=== PATIENT | female | born 1960 | race Caucasian/White ===

== ENCOUNTER → 2017-10-21 | Outpatient (CLI) | payer OTHER | END | disposition home or self-care (01) | LOC: LAB 14:48 | PROVIDERS: ATTEND Family Medicine | DX: E03.9 Hypothyroidism, unspecified (principal) | CPT/HCPCS: 84443 ==

== ENCOUNTER → 2017-11-08 | Outpatient (CLI) | payer OTHER ==
[2017-11-08 08:43] LABS: BASO # 0.1 x10^3/uL (0.0-0.2); BASO % 2 % (0-3); EOS # 0.2 x10^3/uL (0.0-0.7); EOS % 3 % (0-3); LYMPH # 1.6 x10^3/uL (1.0-4.8); LYMPH % 33 % (24-48); MEAN CORPUSCULAR HEMOGLOBIN 30 pg (25-35); MEAN CORPUSCULAR HGB CONC 34 g/dL (31-37); MEAN CORPUSCULAR VOLUME 89 fL (79-100); MONO # 0.5 x10^3/uL (0.0-1.1); MONO % 10 % (0-9); NEUT # 2.4 x10^3uL (1.8-7.7); NEUT % 52 % (31-73); PLATELET COUNT 338 x10^3/uL (140-400); RED BLOOD COUNT 4.62 x10^6/uL (3.50-5.40); RED CELL DISTRIBUTION WIDTH 13.1 % (11.5-14.5); WHITE BLOOD COUNT 4.7 x10^3/uL (4.0-11.0)
[2017-11-08 08:59] LABS: ALBUMIN 3.7 g/dL (3.4-5.0); ALBUMIN/GLOBULIN RATIO 1.2 (1.0-1.7); CALCIUM 8.9 mg/dL (8.5-10.1); CREATININE 0.9 mg/dL (0.6-1.0); GFR 64.5; TOTAL BILIRUBIN 0.4 mg/dL (0.2-1.0); TOTAL PROTEIN 6.9 g/dL (6.4-8.2)
== END | disposition home or self-care (01) ==
LOC: LAB 07:31
PROVIDERS: ATTEND Family Medicine
DX: Z13.220 Encounter for screening for lipoid disorders (principal); F32.5 Major depressive disorder, single episode, in full remission; F32.89 Other specified depressive episodes; R79.89 Other specified abnormal findings of blood chemistry
CPT/HCPCS: 36415; 80053; 80061; 85025

== ENCOUNTER → 2018-01-28 | Outpatient (CLI) | payer OTHER | END | disposition home or self-care (01) | LOC: LAB 15:11 | PROVIDERS: ATTEND Family Medicine | DX: E03.9 Hypothyroidism, unspecified (principal) | CPT/HCPCS: 84443 ==

== ENCOUNTER → 2018-04-03 | Outpatient (CLI) | payer OTHER | END | disposition home or self-care (01) | LOC: LAB 12:11 | PROVIDERS: ATTEND Family Medicine | DX: E03.9 Hypothyroidism, unspecified (principal) | CPT/HCPCS: 84443 ==

== ENCOUNTER → 2018-05-19 | Outpatient (CLI) | payer OTHER ==
[2018-05-19 11:26] LABS: BASO # 0.1 x10^3/uL (0.0-0.2); BASO % 1 % (0-3); EOS # 0.1 x10^3/uL (0.0-0.7); EOS % 2 % (0-3); HEMATOCRIT 43.4 % (36.0-47.0); HEMOGLOBIN 14.3 g/dL (12.0-15.5); LYMPH # 1.6 x10^3/uL (1.0-4.8); LYMPH % 29 % (24-48); MEAN CORPUSCULAR HEMOGLOBIN 29 pg (25-35); MEAN CORPUSCULAR HGB CONC 33 g/dL (31-37); MEAN CORPUSCULAR VOLUME 89 fL (79-100); MONO # 0.5 x10^3/uL (0.0-1.1); MONO % 9 % (0-9); NEUT # 3.1 x10^3uL (1.8-7.7); NEUT % 59 % (31-73); PLATELET COUNT 381 x10^3/uL (140-400); RED BLOOD COUNT 4.89 x10^6/uL (3.50-5.40); RED CELL DISTRIBUTION WIDTH 13.5 % (11.5-14.5); WHITE BLOOD COUNT 5.3 x10^3/uL (4.0-11.0)
== END | disposition home or self-care (01) ==
LOC: LAB 10:43
PROVIDERS: ATTEND Family Medicine
DX: D47.3 Essential (hemorrhagic) thrombocythemia (principal); E03.9 Hypothyroidism, unspecified
CPT/HCPCS: 36415; 85025

== ENCOUNTER → 2018-07-31 | Outpatient (CLI) | payer OTHER | END | disposition home or self-care (01) | LOC: LAB 14:45 | PROVIDERS: ATTEND Family Medicine | DX: E03.9 Hypothyroidism, unspecified (principal) | CPT/HCPCS: 84443 ==

== ENCOUNTER → 2018-09-04 | Outpatient (CLI) | payer OTHER | END | disposition home or self-care (01) | LOC: LAB 13:34 | PROVIDERS: ATTEND Family Medicine | DX: E03.9 Hypothyroidism, unspecified (principal) | CPT/HCPCS: 84443 ==

== ENCOUNTER → 2018-11-26 | Outpatient (CLI) | payer OTHER ==
--- NOTE | 2018-11-26 16:33 | RAD ---
EXAM: Pelvic sonogram. HISTORY: Pelvic pain. TECHNIQUE: . Transabdominal and transvaginal sonographic imaging of the pelvis was performed. COMPARISON: None. FINDINGS: The uterus is retroflexed and retroverted and measures 6.8 x 4.3 x 3.8 cm. The endometrial stripe measures 4 mm in thickness. There are 2 solid hypoechoic lesions within the uterine fundus measuring 3.8 x 3.6 x 3.3 cm and 2.0 x 2.0 x 1.7 cm. The imaging appearance favors uterine fibroids. The ovaries are normal in size and demonstrate normal blood flow. There is no pelvic free fluid. IMPRESSION: 1. Suspected uterine fibroids measuring 3.8 cm and 2.0 cm. 2. Retroflexed and retroverted uterus. 3. Otherwise, unremarkable pelvic sonogram. Electronically signed by: Krystyna Rodney MD (11/26/2018 4:30 PM) [facility]
== END | disposition home or self-care (01) ==
LOC: US 14:57
PROVIDERS: ATTEND Family Medicine
DX: N85.4 Malposition of uterus (principal); N85.9 Noninflammatory disorder of uterus, unspecified
CPT/HCPCS: 76830; 76856

== ENCOUNTER → 2018-11-27 | Outpatient (CLI) | payer OTHER ==
[~2018-11-27] MED LIST: IOHEXOL 240 MG/ML 50ML VIAL. ONE; IOHEXOL 240 MG/ML 50ML VIAL. PO ONE; IOHEXOL 300 MG/ML 75 ML VIAL. IV ONE
[2018-11-27 15:33] LABS: CALCIUM 8.9 mg/dL (8.5-10.1); CREATININE 1.1 mg/dL (0.6-1.0); POTASSIUM 4.1 mmol/L (3.5-5.1)
--- NOTE | 2018-11-27 17:05 | RAD ---
CT ABD PELV W/ORAL IV CONTRAST Indication: LOWER ABDOMINAL PAIN WITH FULLNESS/BLOATING
ORAL AND 60MLS OMNI 300 IV CONTRAST Exposure: One or more of the following individualized dose reduction techniques were utilized for this examination: 1. Automated exposure control 2. Adjustment of the mA and/or kV according to patient size 3. Use of iterative reconstruction technique. Technique: Intravenous contrast was given. Oral contrast was given. No prior study for comparison. Lung bases are clear. Liver and spleen appear unremarkable. Pancreas unremarkable. No adrenal mass. Kidneys demonstrate symmetric enhancement without hydronephrosis or significant lesion. No calcified gallstone. Aorta nonaneurysmal. No significant lymph node enlargement. Mild wall thickening of proximal small bowel loops. No evidence of obstruction. No evidence of acute colitis. Moderate retained stool in the colon. The appendix appears normal. No evidence of pelvic mass. Urinary bladder unremarkable. No evidence of significant free fluid or pneumoperitoneum. Mild degenerative spurring of the spine. Minimal anterolisthesis of L4 and L5. No destructive bone lesion. IMPRESSION: 1. Mild apparent wall thickening of proximal small bowel loops, could indicate small bowel enteritis. 2. Moderate retained stool in the colon, correlate for constipation. Electronically signed by: Chandana Frausto MD (11/27/2018 5:02 PM) [facility]
== END | disposition home or self-care (01) ==
LOC: CT 14:54
PROVIDERS: ATTEND Family Medicine
DX: M43.16 Spondylolisthesis, lumbar region (principal)
CPT/HCPCS: 36415; 74177; 80048; Q9967

== ENCOUNTER → 2019-07-07 | Outpatient (CLI) | payer OTHER ==
--- NOTE | 2019-07-07 17:18 | RAD ---
Examination: KNEE RIGHT 3V History: Pain Comparison/Correlation: None Findings: Total of 3 images of the right knee were obtained. Spurring about the knee is present. No definite effusion. No fracture or bony destruction. Soft tissues are grossly unremarkable. Joint spaces are adequate. Impression: No acute process. Electronically signed by: He Liu MD (07/07/2019 5:15 PM) [facility]
== END | disposition home or self-care (01) ==
LOC: RAD 16:25
PROVIDERS: ATTEND Physician Assistant
DX: M25.561 Pain in right knee (principal)
CPT/HCPCS: 73562

== ENCOUNTER 2019-09-24 06:01 | Emergency (ER) | payer OTHER ==
[~2019-09-24] VITALS: Ht 172.7 cm; Wt 79.0 kg
--- NOTE | 2019-09-24 06:40 | PHYS DOC ---
Past History Past Medical History: Hypothyroid, Other Additional Past Medical Histor: spastic colon Past Surgical History: Other Additional Past Surgical Histo: sinus surgery Smoking: Non-smoker Alcohol Use: None Adult General Chief Complaint Chief Complaint: ABDOMINAL PAIN HPI HPI Patient is a 58-year-old female presents to the emergency department for evaluation. She states that she has been having upper abdominal pain on and off for a month, but it seemed to worsen over the past 24 hours. She went see her doctor yesterday, who thought the problem might be the patient's rib, but states the pain worsened overnight, and the patient developed vomiting. She has had n ausea, but no diarrhea. She denies any fevers or chills, chest pain or shortness of breath. She has not had any black or bloody stools. She does not smoke or drink alcohol. There are no alleviating or exacerbating factors to her symptoms. Review of Systems Review of Systems Constitutional: Denies fever or chills [] Eyes: Denies change in visual acuity, redness, or eye pain [] HENT: Denies nasal congestion or sore throat [] Respiratory: Denies cough or shortness of breath [] Cardiovascular:The patient denies any shortness of breath, chest pain, palpitations, or orthopnea [] GI: No additional information not addressed in HPI [] : Denies dysuria or hematuria [] Musculoskeletal: Denies back pain or joint pain [] Integument: Denies rash or skin lesions [] Neurologic: Denies headache, focal weakness or sensory changes [] Endocrine: Denies polyuria or polydipsia [] All other systems were reviewed and found to be within normal limits, except as documented in this note. Current Medications Current Medications Current Medications Medications (Trade) Dose Ordered Sig/[place] Start Time Stop Time Status Last Admin Dose Admin Info (Do NOT chart on this entry -- for MONITORING) 1 each PRN DAILY PRN 09/24/19 06:45 09/26/19 06:44 Iohexol (Omnipaque 300 Mg/ml) 75 ml 1X ONCE 09/24/19 07:00 09/24/19 07:01 Ondansetron HCl (Zofran) 4 mg 1X ONCE 09/24/19 07:00 09/24/19 07:01 Sodium Chloride 1,000 ml @ 1,000 mls/hr Q1H 09/24/19 07:00 09/24/19 07:59 Allergies Allergies Allergies Coded Allergies Type Severity Reaction Last Updated Verified Sulfa (Sulfonamide Antibiotics) Allergy Intermediate Hives 11/27/18 Yes Physical Exam Physical Exam PHYSICAL EXAM: CONSTITUTIONAL: Well developed, well nourished HEAD: normocephalic, atraumatic EENT: PERRL, EOMI. Conjunctivae normal color, sclerae non-icteric; moist mucous membranes. NECK: Supple, non-tender; no meningismus. LUNGS: Lungs CTA, breathing even and unlabored. Normal air movement. HEART: Regular rate and rhythm, no murmur CHEST: No deformity; non-tender ABDOMEN: The abdomen is soft, there is moderate epigastric tenderness to palpation, with mild left upper, and mid abdominal tenderness to palpation, without rebound or guarding, the remainder the abdomen is relatively soft and non-tender, no masses or bruits. EXTREM: Normal ROM; no deformity, no calf tenderness. Normal pulses palpable in all extremities. There is no pedal edema. SKIN: No rash; no diaphoresis NEURO: Alert; normal speech and cognition; CN's grossly intact; strength grossly intact without focal deficit. BACK: No CVA TTP. Current Patient Data Vital Signs Vital Signs Date Time Temp Pulse Resp B/P (MAP) Pulse Ox O2 Delivery O2 Flow Rate FiO2 09/24/19 06:16 98.6 95 18 107/68 (81) 93 Room Air Lab Results Laboratory Tests Test 09/24/19 06:10 09/24/19 06:30 Urine Collection Type Unknown Urine Color Yellow Urine Clarity Hazy Urine pH 7.0 Urine Specific [place] 1.020 Urine Protein Neg Urine Glucose (UA) Neg mg/dL Urine Ketones (Stick) Trace mg/dL Urine Blood Neg Urine Nitrite Neg Urine Bilirubin Neg Urine Urobilinogen Dipstick 0.2 mg/dL Urine Leukocyte Esterase Neg Urine RBC 1-2 /HPF Urine WBC 1-4 /HPF Urine Squamous Epithelial Cells Few /LPF Urine Transitional Epithelial Cells /LPF Urine Bacteria Few /HPF Urine Mucus Mod /LPF White Blood Count 8.7 x10^3/uL Red Blood Count 5.17 x10^6/uL Hemoglobin 15.1 g/dL Hematocrit 45.5 % Mean Corpuscular Volume 88 fL Mean Corpuscular Hemoglobin 29 pg Mean Corpuscular Hemoglobin Concent 33 g/dL Red Cell Distribution Width 14.2 % Platelet Count 327 x10^3/uL Neutrophils (%) (Auto) 94 % Lymphocytes (%) (Auto) 3 % Monocytes (%) (Auto) 2 % Eosinophils (%) (Auto) 0 % Basophils (%) (Auto) 0 % Neutrophils # (Auto) 8.1 x10^3uL Lymphocytes # (Auto) 0.3 x10^3/uL Monocytes # (Auto) 0.2 x10^3/uL Eosinophils # (Auto) 0.0 x10^3/uL Basophils # (Auto) 0.0 x10^3/uL Sodium Level 143 mmol/L Potassium Level 4.1 mmol/L Chloride Level 105 mmol/L Carbon Dioxide Level 28 mmol/L Anion Gap 10 Blood Urea Nitrogen 16 mg/dL Creatinine 0.9 mg/dL Estimated GFR (Cockcroft-Gault) 64.3 BUN/Creatinine Ratio 18 Glucose Level 127 mg/dL Calcium Level 8.8 mg/dL Total Bilirubin 0.4 mg/dL Aspartate Amino Transf (AST/SGOT) 21 U/L Alanine Aminotransferase (ALT/SGPT) 29 U/L Alkaline Phosphatase 59 U/L Troponin I Quantitative < 0.017 ng/mL Total Protein 6.7 g/dL Albumin 3.8 g/dL Albumin/Globulin Ratio 1.3 Lipase 88 U/L Current Medications Medications (Trade) Dose Ordered Sig/[place] Route PRN Reason Start Time Stop Time Status Last Admin Dose Admin Sodium Chloride 1,000 ml @ 1,000 mls/hr Q1H IV 09/24/19 07:00 09/24/19 07:59 09/24/19 06:38 Ondansetron HCl (Zofran) 4 mg 1X ONCE IVP 09/24/19 07:00 09/24/19 07:01 DC 09/24/19 06:37 Iohexol (Omnipaque 300 Mg/ml) 75 ml 1X ONCE IV 09/24/19 07:00 09/24/19 07:01 DC 09/24/19 06:46 Info (Do NOT chart on this entry -- for MONITORING) 1 each PRN DAILY PRN MC SEE COMMENTS 09/24/19 06:45 09/26/19 06:44 EKG EKG Normal sinus rhythm at a rate of 76 bpm, normal axis, normal intervals. There are no acute ischemic ST/T changes.[] Radiology/Procedures Radiology/Procedures PROCEDURE: CT ABD PELV W/ IV CONTRST ONLY CT abdomen and pelvis with contrast PQRS statement: CT scans at this facility use dose reduction including either automated exposure control, iterative reconstructions, and /or weight based radiation dosing via mA and kV modification when appropriate to reduce radiation dose to as low as reasonably achievable. HISTORY: Left upper quadrant abdominal pain, left lower quadrant abdominal pain. Contrast: 75 mL Omnipaque 300 intravenous contrast. Abdomen findings: 4 mm right middle lobe pulmonary nodule image 2. Subcentimeter hypodensity left renal lower pole and a separate subcentimeter hypodensity in the lower spleen, too small to characterize due to volume averaging. Liver, gallbladder, pancreas, adrenal glands and right kidney are unremarkable. No obstruction or inflammation the GI tract. Appendix is negative. No abdominal fluid or adenopathy. Mild tortuosity of the aorta and iliac arteries. Lower lumbar disc disease with disc bulges and facet spurring contributes to spinal canal and neural foraminal stenoses at L4-5 and neural foraminal stenoses at L5-S1. Pelvis findings: Retroverted uterus with lobulation and probable masses most likely leiomyomas. Pelvic phleboliths. Ovaries, bladder, rectum and bones are unremarkable. No pelvic fluid or adenopathy. IMPRESSION: 1. No acute process. Appendix is negative. 2. Probable uterine leiomyomas. 3. 4 mm right middle lobe pulmonary nodule. Per Fleischner guidelines if the patient has risk factors for malignancy optional CT follow-up in 12 months would be advised, otherwise no follow-up may be necessary.[] Course & Med Decision Making Course & Med Decision Making Pertinent Labs and Imaging studies reviewed. (See chart for details) []7:30 AM: Patient's condition remains stable. I discussed test results with the patient, the need for close follow-up, and return precautions. Dragon Disclaimer Dragon Disclaimer This electronic medical record was generated, in whole or in part, using a voice recognition dictation system. Departure Departure: Impression: Primary Impression: Abdominal pain Disposition: 01 HOME, SELF-CARE Condition: STABLE Referrals: NOLVIA PARKER MD (PCP) PENELOPE VAIL MD Patient Instructions: Abdominal Pain, Gastritis, Adult Scripts Ondansetron (ONDANSETRON ODT) 4 Mg Tab.rapdis 1 TAB PO PRN Q6-8HRS for N/V, #15 TAB Prov: LUIS CROWE MD 09/24/19 Omeprazole (OMEPRAZOLE) 20 Mg Capsule. 1 CAP PO DAILY for -, #30 CAP 0 Refills Prov: LUIS CROWE MD 09/24/19 LUIS CROWE MD Sep 24, 2019 06:40
--- NOTE | 2019-09-24 06:44 | EKG ---
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
[2019-09-24] MEDS ORDERED: CONTRAST GIVEN MC PRN (06:45)
[2019-09-24 06:47] LABS: BASO % 0 % (0-3); EOS % 0 % (0-3); HEMATOCRIT 45.5 % (36.0-47.0); HEMOGLOBIN 15.1 g/dL (12.0-15.5); LYMPH # 0.3 x10^3/uL (1.0-4.8); LYMPH % 3 % (24-48); MEAN CORPUSCULAR HEMOGLOBIN 29 pg (25-35); MEAN CORPUSCULAR HGB CONC 33 g/dL (31-37); MEAN CORPUSCULAR VOLUME 88 fL (79-100); MONO # 0.2 x10^3/uL (0.0-1.1); MONO % 2 % (0-9); NEUT # 8.1 x10^3uL (1.8-7.7); NEUT % 94 % (31-73); PLATELET COUNT 327 x10^3/uL (140-400); RED BLOOD COUNT 5.17 x10^6/uL (3.50-5.40); RED CELL DISTRIBUTION WIDTH 14.2 % (11.5-14.5); WHITE BLOOD COUNT 8.7 x10^3/uL (4.0-11.0)
[2019-09-24 06:54] LABS: CALCIUM 8.8 mg/dL (8.5-10.1); CREATININE 0.9 mg/dL (0.6-1.0); GFR 64.3; POTASSIUM 4.1 mmol/L (3.5-5.1)
[2019-09-24 06:58] LABS: BACTERIA,URINE FEW /HPF (0-FEW); BILIRUBIN,URINE NEG (NEG); CLARITY,URINE HAZY; COLOR,URINE YELLOW; GLUCOSE,URINE NEG (NEG); NITRITE,URINE NEG (NEG); SQUAMOUS EPITHELIAL CELL,UR FEW /LPF; UROBILINOGEN,URINE 0.2 mg/dL (0.2 mg/dL)
[2019-09-24 07:00] LABS: ALBUMIN 3.8 g/dL (3.4-5.0); ALBUMIN/GLOBULIN RATIO 1.3 (1.0-1.7); TOTAL BILIRUBIN 0.4 mg/dL (0.2-1.0); TOTAL PROTEIN 6.7 g/dL (6.4-8.2)
[2019-09-24] MEDS ORDERED: IV NORMAL SALINE 1,000ML 1,000 ML IV SCH (07:00)
[2019-09-24] MEDS ORDERED: ONDANSETRON PF 4 MG/2 ML VIAL. IVP ONE (07:00)
[2019-09-24] MEDS ORDERED: IOHEXOL 300 MG/ML 75 ML VIAL. IV ONE (07:00)
--- NOTE | 2019-09-24 07:20 | RAD ---
CT abdomen and pelvis with contrast PQRS statement: CT scans at this facility use dose reduction including either automated exposure control, iterative reconstructions, and /or weight based radiation dosing via mA and kV modification when appropriate to reduce radiation dose to as low as reasonably achievable. HISTORY: Left upper quadrant abdominal pain, left lower quadrant abdominal pain. Contrast: 75 mL Omnipaque 300 intravenous contrast. Abdomen findings: 4 mm right middle lobe pulmonary nodule image 2. Subcentimeter hypodensity left renal lower pole and a separate subcentimeter hypodensity in the lower spleen, too small to characterize due to volume averaging. Liver, gallbladder, pancreas, adrenal glands and right kidney are unremarkable. No obstruction or inflammation the GI tract. Appendix is negative. No abdominal fluid or adenopathy. Mild tortuosity of the aorta and iliac arteries. Lower lumbar disc disease with disc bulges and facet spurring contributes to spinal canal and neural foraminal stenoses at L4-5 and neural foraminal stenoses at L5-S1. Pelvis findings: Retroverted uterus with lobulation and probable masses most likely leiomyomas. Pelvic phleboliths. Ovaries, bladder, rectum and bones are unremarkable. No pelvic fluid or adenopathy. IMPRESSION: 1. No acute process. Appendix is negative. 2. Probable uterine leiomyomas. 3. 4 mm right middle lobe pulmonary nodule. Per Fleischner guidelines if the patient has risk factors for malignancy optional CT follow-up in 12 months would be advised, otherwise no follow-up may be necessary. Electronically signed by: Tashi Puente MD (09/24/2019 7:17 AM) [id number]
[2019-09-24] MEDS ORDERED: ONDA4TAB12 PO (07:35)
[2019-09-24] MEDS ORDERED: OMEP20CA16 PO (07:35)
[2019-09-24 07:43] VITALS: BP 128/69
== END 2019-09-24 07:43 | disposition home or self-care (01) ==
LOC: ER 06:01
DX: R10.12 Left upper quadrant pain (principal); R10.13 Epigastric pain; R11.2 Nausea with vomiting, unspecified; E03.9 Hypothyroidism, unspecified; Z88.2 Allergy status to sulfonamides
CPT/HCPCS: 36415; 74177; 80053; 81001; 83690; 84484; 85025; 93005; 96361; 96374; 99285; J2405; Q9967; J7030

== ENCOUNTER → 2019-10-19 | Outpatient (CLI) | payer OTHER ==
[2019-09-24 07:43] VITALS: BP 128/69
[~2019-10-19] MED LIST changes: -IOHEXOL 240 MG/ML 50ML VIAL. ONE; -IOHEXOL 240 MG/ML 50ML VIAL. PO ONE; -IOHEXOL 300 MG/ML 75 ML VIAL. IV ONE; +OMEP20CA16 PO; +ONDA4TAB12 PO
[2019-10-19 09:42] LABS: ALBUMIN 3.7 g/dL (3.4-5.0); ALBUMIN/GLOBULIN RATIO 1.2 (1.0-1.7); CALCIUM 8.8 mg/dL (8.5-10.1); CREATININE 0.9 mg/dL (0.6-1.0); GFR 64.1; POTASSIUM 3.9 mmol/L (3.5-5.1); TOTAL BILIRUBIN 0.5 mg/dL (0.2-1.0); TOTAL PROTEIN 6.7 g/dL (6.4-8.2)
== END ==
LOC: LAB 08:51
PROVIDERS: ATTEND Physician Assistant
DX: Z13.220 Encounter for screening for lipoid disorders (principal)
CPT/HCPCS: 36415; 80053; 80061